=== PATIENT | male | born 1960 | race African-American/Black ===

== ENCOUNTER 2019-11-01 05:24 | Inpatient (IN) | payer SELFPAY ==
[~2019-11-01] VITALS: Ht 175.3 cm; Wt 88.9 kg
[2019-11-01] VITALS (23 sets, daily range): BP systolic 80–118; BP diastolic 48–74
[~2019-11-01 05:24] MED LIST: CLON0.3T; HYDR25TA4; NIFE60TA53
[2019-11-01] MEDS ORDERED: SODIUM CHLORIDE 0.9% 1,000 ML IV ONE (05:45)
[2019-11-01 06:32] LABS: Hematocrit 26.8 % (41.0-53.0); Mean Corpuscular Hemoglobin 34.4 pg (28.0-32.0); Mean Corpuscular Hgb Conc. 33.7 g/dL (32.0-36.0); Mean Corpuscular Volume 102.2 fL (80.0-100.0); Platelet Count (auto) 230 10^3/uL (140-450); Red Blood Cells 2.62 10^6/uL (4.5-5.90); White Blood Cell 15.7 10^3/uL (4.4-10.8)
[2019-11-01 06:34] LABS: Basophils % (manual) 0 (0.0-2.0); Blast Cells 0; Eosinophils % (manual) 0 (0-7); Promyelocytes % 0; Reactive Lymphocytes 0
[2019-11-01 06:35] LABS: Chloride 102 mmol/L (98-107); Potassium 3.5 mmol/L (3.5-5.1); Sodium 137 mmol/L (136-145)
[2019-11-01 06:36] LABS: INR 1.39 (0.9-1.15); Partial Thromboplastin Time 25.2 sec (23.64-32.05)
[2019-11-01 06:48] LABS: Alanine Aminotransferase 35 U/L (16-61); Albumin 2.9 g/dL (3.4-5.0); Alkaline Phosphatase 81 U/L (45-117); Anion Gap 14 (5-15); Aspartate Aminotransferase 32 U/L (15-37); BUN/Creatinine Ratio 36.7; Blood Urea Nitrogen 58 mg/dL (7-18); Calcium 7.7 mg/dL (8.5-10.1); Carbon Dioxide 21 mmol/L (21-32); GFR African American 58 mL/min; GFR Non-African American 48 mL/min; Glucose 140 mg/dL (74-106); Total Protein 6.6 g/dL (6.4-8.2)
[2019-11-01 06:52] LABS: Band Neutrophils % (manual) 1; Lymphocytes % (manual) 24 (10.0-50.0); Metamyelocytes % 1; Monocytes % (manual) 7 (0-12); Myelocytes % 2
[2019-11-01] MEDS ORDERED: ALBUMIN 5% 250 ML IV ONE (07:45)
[2019-11-01] MEDS ORDERED: MORPHINE SULF INJ 2 MG/ML SYRINGE 1ML IV PRN (07:45)
[2019-11-01] MEDS ORDERED: ONDANSETRON HCL 4 MG/2 ML VIAL IV PRN (07:45)
[2019-11-01] MEDS ORDERED: NITROGLYCERIN 0.4 MG SL TAB SL PRN (07:45)
[2019-11-01] MEDS: SODIUM CHLORIDE 0.9% 1,000 ML IV SCH (08:33)
[2019-11-01 08:42] LABS: Hematocrit 23.7 % (41.0-53.0); Hemoglobin 7.8 g/dL (13.5-17.5)
--- NOTE | 2019-11-01 09:12 | NUR ---
RECEIVED REPORT FROM CANDIDA DOLL
--- NOTE | 2019-11-01 09:25 | NUR ---
RECEIVED PT ON UNIT PT IS AWAKE AND ALERT X4. PERSON, PLACE, TIME, SITUATION. PT IS ON ROOM AIR AND BREATHING IS EVEN AND UNLABORED. PT HAS AN IV TO LEFT HAND 22 GAUGE AND A LEFT AC 20 GAUGE. PT RECEIVED 1L BOLUS PER TREE AND SHRUB WORKER. PT USES URINAL AND BEDSIDE TOILET FOR BOWEL MOVEMENTS. VS: HR 137, BP 104/61, RR 23, O2 SAT 100% ON ROOM AIR. TEMP 98 F, PAIN 8/10 IN ABDOMEN. PT IS COOPERATIVE BUT FEELS DIZZY AND LIGHTHEADED. WILL CONTINUE TO MONITOR.
[2019-11-01] MEDS: PANTOPRAZOLE 80 MG in SODIUM CHL 0.9% 60 ML IV SCH ×2 (09:52→21:51)
[2019-11-01] MEDS: OCTREOTIDE ACETATE 500 MCG in SODIUM CHL 0.9% 99 ML IV SCH ×2 (09:52→21:52)
[2019-11-01] MEDS: cefTRIAXone 1GM/50ML D5W 50 ML IV SCH (10:13)
--- NOTE | 2019-11-01 10:30 | NUR ---
DR. CAMARENA AT BEDSIDE ORDERS RECEIVED
[2019-11-01] MEDS ORDERED: MAGNESIUM SULFATE 1GM/100ML 100 ML IV ONE (11:00)
[2019-11-01] MEDS ORDERED: ALUM & MAG HYDROX-SIMETH LIQ(MAALOX) 30 ML PO PRN (11:00)
[2019-11-01] MEDS ORDERED: PHYTONADIONE (VIT K)10 MG/ML 1ML VIAL SUBCUT ONE (11:00)
--- NOTE | 2019-11-01 11:00 | NUR ---
DR. HEMPHILL AT BEDSIDE SPOKE WITH PT REGARDING EGD AND POSSIBLE COLONOSCOPY. PT STATES UNDERSTANDING OF INFORMATION GIVEN. ORDERS RECEIVED
--- NOTE | 2019-11-01 11:00 | NUR ---
PT HAD APPROXIMATELY 300CC LIQUID BLACK STOOL IN TOILET
[2019-11-01] MEDS ORDERED: diphenhdrAMINE HCL 50 MG/1 ML VL IV PRN (11:30)
[2019-11-01] MEDS ORDERED: MIDAZOLAM HCL 5 MG/ML-1ML VIAL ONE (11:39)
[2019-11-01] MEDS ORDERED: NOREPINEPHRINE 8 MG/250ML KIT 250 ML IV ONE (11:40)
[2019-11-01] MEDS ORDERED: ETOMIDATE (2MG/ML) 20ML VIAL IV ONE (11:40)
--- NOTE | 2019-11-01 12:00 | NUR ---
LOW BP CONTACTED DR. CAMARENA REGARDING PT'S LOW BP. ORDERS RECEIVED
--- NOTE | 2019-11-01 12:00 | NUR ---
CONSENTS SIGNED FOR BLOOD TRANSFUSION, EGD, COLONOSCOPY, AND SEDATION
[2019-11-01] MEDS: MORPHINE SULF INJ 2 MG/ML SYRINGE 1ML IV PRN ×2 (12:39→21:41)
--- NOTE | 2019-11-01 13:03 | NUR ---
BLOOD TRANSFUSION STARTED. SEE VITAL SIGNS IN TRANSFUSION TAB. WILL CONTINUE TO MONITOR
[2019-11-01] MEDS: NOREPINEPHRINE 8 MG/250ML KIT 250 ML IV SCH (13:08)
[2019-11-01] MEDS ORDERED: EPINEPHrine HCL 1 MG/10 ML SYRG ONE (13:39)
[2019-11-01] MEDS ORDERED: diphenhdrAMINE HCL 50 MG/1 ML VL ONE (13:59)
[2019-11-01] MEDS ORDERED: MIDAZOLAM HCL 5 MG/ML-1ML VIAL IV ONE (14:00)
[2019-11-01] MEDS ORDERED: SODIUM CHLORIDE LOCK 10 ML ONE (14:01)
--- NOTE | 2019-11-01 14:15 | NUR ---
DR. HEMPHILL AT BEDSIDE TO PERFORM EGD
[2019-11-01] MEDS: MIDAZOLAM HCL 5 MG/ML-1ML VIAL ONE ×6 (14:34→15:32)
[2019-11-01] MEDS: fentaNYL CITRATE 100 MCG/2 ML VL ONE ×5 (14:34→15:32)
--- NOTE | 2019-11-01 15:30 | NUR ---
UNABLE TO VS BLOOD PRESSURES FROM [id number] DUE TO EGD PROCEDURE
--- NOTE | 2019-11-01 15:30 | NUR ---
DR. HEMPHILL STATES THAT HE WAS NOT ABLE TO STOP BLEEDING WITH EGD INTERVENTIONS. STATES WILL CONSULT WITH INTERVENTIONAL RADIOLOGY
--- NOTE | 2019-11-01 16:00 | NUR ---
1 UNIT PRBC TRANSFUSED. NO S/S OF TRANSFUSION REACTION. PT TOLERATED WELL.
--- NOTE | 2019-11-01 16:12 | NUR ---
PICC NURSE AT BEDSIDE TO PLACE MIDLINE
--- NOTE | 2019-11-01 16:15 | NUR ---
UNABLE TO OBTAIN VS BLOOD PRESSURE FROM [id number] DUE TO PICC NURSE TRYING TO OBTAIN MIDLINE ACCESS
[2019-11-01] MEDS ORDERED: LIDOCAINE 2%HCL (LOCAL ANESTH.) INJ 20ML MDV ONE (16:19)
[2019-11-01] MEDS ORDERED: IOHEXOL 350 MG/ML 100ML IJ ONE ×3 (16:19→18:09)
--- NOTE | 2019-11-01 16:25 | NUR ---
Midline Placement: Patient educated on need for midline placement. All risks and benefits explained and all questions and concerns addresses prior to procedure. 18g/10cm midline inserted via right basilic vein using Ultrasound. Sterile technique utilized. Blood return obtained from lumen and flushed easily with NS using proper technique. Midline secured with saline lock; biodisc and occlusive dressing applied. Primary RN notified. Midline lot #[id number]
--- NOTE | 2019-11-01 16:36 | NUR ---
PT TAKEN TO LINE PRODUCTION COOK
[2019-11-01] MEDS ORDERED: fentaNYL CITRATE 100 MCG/2 ML VL ONE (16:41)
[2019-11-01] MEDS ORDERED: MIDAZOLAM HCL 1MG/1ML-2 ML VIAL ONE (16:42)
[2019-11-01] MEDS ORDERED: GELATIN 1 SPONGE SIZE 50 TOP ONE (17:23)
--- NOTE | 2019-11-01 18:00 | NUR ---
NOT ABLE TO DO 1800 ASSESSMENTS DUE TO PT OFF UNIT IN INTERVENTIONAL RADIOLOGY
[2019-11-01] MEDS ORDERED: GELATIN 1 SPONGE SIZE 100 TOP ONE (18:23)
--- NOTE | 2019-11-01 19:06 | NUR ---
PT RETURNED BACK FROM TRIAL COURT JUDGE REPORT RECEIVED FROM PAUL DOLL. NO SEDATION WAS USED. ANGIOSEAL TO RIGHT GROIN. SITE CLEAN DRY INTACT. WILL KEEP PATIENT FLAT FOR 2 HOURS. TIME WILL BE 2044 PER PAUL DOLL. WILL CONTINUE TO MONITOR.
--- NOTE | 2019-11-01 19:06 | NUR ---
UNABLE TO OBTAIN VS FROM [id number] DUE TO PT BEING OFF UNIT IN THE INSURANCE REPRESENTATIVE
[2019-11-01] MEDS: MAGNESIUM SULFATE 1GM/100ML 100 ML IV SCH ×3 (19:23→22:18)
--- NOTE | 2019-11-01 20:00 | NUR ---
OPEN Assumed care, full assessment done; see interventions. Right groin angio site asymptomatic, patient aware to keep leg straight and lay flat until approx. 2100 per MD order. HR afib in the low 100s, SBP stable. Protonix, Sandostatin, and mag rider infusing per IV spreadsheet.
--- NOTE | 2019-11-01 20:05 | NUR ---
PRBC/ELIMINATION PRBC verified and hung. Patient had soft-liquid BM via bedpan, arsh care done.
--- NOTE | 2019-11-01 20:05 | NUR ---
2ND UNIT BLOOD TRANSFUSION STARTED. SEE TRANSFUSION TAB FOR VITAL SIGNS. WILL CONTINUE TO MONITOR
--- NOTE | 2019-11-01 20:10 | NUR ---
CLOSING NOTE SHIFT REPORT GIVEN AND CARE ENDORSED TO LE DOLL
[2019-11-01] MEDS ORDERED: METO-158 PO (21:05)
[2019-11-01] MEDS ORDERED: LOSA-69 PO (21:05)
[2019-11-01] MEDS ORDERED: ASPI-231 PO (21:05)
[2019-11-01] MEDS ORDERED: AMLO5TAB15 PO (21:05)
[2019-11-01] MEDS ORDERED: ASPI-498 OR (21:05)
--- NOTE | 2019-11-01 22:38 | NUR ---
PRBC Completed transfusing, patient tolerated well with no adverse reaction noted. Vital signs stable. Will re-time H&H for 2330.
[2019-11-01 23:55] LABS: Hematocrit 25.9 % (41.0-53.0); Hemoglobin 8.4 g/dL (13.5-17.5)
[2019-11-02] VITALS (71 sets, daily range): BP systolic 91–167; BP diastolic 48–83
[2019-11-02] MEDS: chlordiazePOXIDE HCL 25 MG CAP PO PRN ×3 (00:29→19:38)
--- NOTE | 2019-11-02 00:29 | NUR ---
ANXIETY/RESTLESSNESS Patient very anxious, restless in bed; pain medication not due at this time. Administered PRN librium, see eMAR.
[2019-11-02] MEDS: SODIUM CHLORIDE 0.9% 1,000 ML IV SCH ×3 (00:30→21:00)
[2019-11-02] MEDS: MORPHINE SULF INJ 2 MG/ML SYRINGE 1ML IV PRN ×4 (01:42→19:42)
--- NOTE | 2019-11-02 03:36 | NUR ---
HR/HOSPITALIST Patient's HR sustaining 130-140s, SBP 110s. Patient resting at this time. Hospitalist paged.
[2019-11-02 03:45] LABS: Basophils # (auto) 0 uL; Basophils % (auto) 0.1 % (0.0-2.0); Eosinophils # (auto) 0 uL; Hemoglobin 7.4 g/dL (13.5-17.5); Lymphocytes # (auto) 2.6 uL; Lymphocytes % (auto) 15.2 % (10.0-50.0); Mean Corpuscular Hemoglobin 32.4 pg (28.0-32.0); Mean Corpuscular Hgb Conc. 32.2 g/dL (32.0-36.0); Mean Corpuscular Volume 100.6 fL (80.0-100.0); Monocytes # (auto) 1.4 uL; Monocytes % (auto) 8.2 % (0.0-12.0); Neutrophils # (auto) 12.8 uL; Neutrophils % (auto) 76.5 % (37.0-80.0); Platelet Count (auto) 146 10^3/uL (140-450); Red Blood Cells 2.28 10^6/uL (4.5-5.90); Red Cell Distribution Width 16.7 % (11.8-14.3); White Blood Cell 16.8 10^3/uL (4.4-10.8)
[2019-11-02 04:00] LABS: INR 1.3 (0.9-1.15)
[2019-11-02 04:01] LABS: Albumin 2.5 g/dL (3.4-5.0); Calcium 7.2 mg/dL (8.5-10.1); Magnesium 2.5 mg/dL (1.6-2.6); Potassium 5.1 mmol/L (3.5-5.1)
[2019-11-02 04:07] LABS: Bilirubin, Total 0.5 mg/dL (0.2-1.0); Total Protein 5.4 g/dL (6.4-8.2)
[2019-11-02] MEDS ORDERED: DIGOXIN (250MCG/ML) 2 ML AMPULE IV ONE ×2 (04:15→06:15)
--- NOTE | 2019-11-02 04:15 | NUR ---
ORDERS Spoke with Josue Orellana NP; new orders received.
--- NOTE | 2019-11-02 04:27 | NUR ---
DIGOXIN 0.125 mg Digoxin IVP x one administered per orders over 5 minutes. Patient tolerated well.
--- NOTE | 2019-11-02 05:33 | NUR ---
HOSPITALIST No significant drop in HR noted after Digoxin administration; hospitalist paged.
--- NOTE | 2019-11-02 06:13 | NUR ---
HOSPITALIST Spoke with Josue Orellana NP; orders received to repeat 0.125 mg dose of Digoxin IVP x one.
--- NOTE | 2019-11-02 06:38 | NUR ---
PRBC Ordered 1 unit PRBC per standing order by Dr. Lowry. Addendum: 11/02/19 at 0646 by Liberty Ponce RN For Hgb 7.4
--- NOTE | 2019-11-02 07:28 | NUR ---
SHIFT OPENING NOTE PATIENT AOX4, MOVING ALL EXTREMITIES, REPORTS ABDOMINAL PAIN, ABDOMEN ROUND, SOFT, AND TENDER TO TOUCH, PATIENT ON ROOM AIR, 02 SATURATION 98%, LUNGS CLEAR THROUGHOUT. URINAL AT BEDSIDE WITH NO BLADDER DISTENSION, SKIN INTEGRITY SEE INTERVENTION. PLAN OF CARE DISCUSSED WITH PATIENT WITH ALL QUESTIONS AND CONCERNS ADDRESSED AT THIS TIME
--- NOTE | 2019-11-02 07:59 | NUR ---
BLOOD TRANSFUSION STARTED NO ADVERSE REACTION NOTED
[2019-11-02] MEDS: OCTREOTIDE ACETATE 500 MCG in SODIUM CHL 0.9% 99 ML IV SCH (08:12)
--- NOTE | 2019-11-02 08:45 | NUR ---
FAMILY AND NIECE AT BEDSIDE. UPDATED ON PATIENT STATUS. ALL QUESTIONS AND CONCERNS ADDRESSED AT THIS TIME
[2019-11-02] MEDS: cefTRIAXone 1GM/50ML D5W 50 ML IV SCH (09:25)
[2019-11-02] MEDS: PANTOPRAZOLE 80 MG in SODIUM CHL 0.9% 60 ML IV SCH (09:35)
[2019-11-02] MEDS: PANTOPRAZOLE 40 MG/10 ML VIAL INJ IV SCH ×2 (10:47→22:02)
--- NOTE | 2019-11-02 11:02 | NUR ---
BLOOD TRANSFUSION COMPLETE NO REACTION NOTED. PATIENT TOLERATED WELL
--- NOTE | 2019-11-02 11:11 | NUR ---
HR 130'S DR. CAMARENA NOTIFIED. ORDERS RECEIVED
[2019-11-02] MEDS ORDERED: AMIODARONE HCL 150 MG in D5W 5% 100 ML IV ONE (11:15)
[2019-11-02] MEDS ORDERED: AMIODARONE HCL 900 MG in DEXTROSE 500 ML IV SCH (11:16)
[2019-11-02] MEDS: NOREPINEPHRINE 8 MG/250ML KIT 250 ML IV SCH (12:44)
--- NOTE | 2019-11-02 13:17 | NUR ---
ECHO AT BEDSIDE
--- NOTE | 2019-11-02 13:20 | NUR ---
HGB 6.6 DR[address] CAMARENA NOTIFIED. ORDERED 2 UNIT PRBC TO BE TRANSFUSED TOLERATED. NO BLOODY STOOLS, EMESIS, OR SIGNS OF BLOOD LOSS AT THIS TIME. ECHO AT BEDSIDE. PATIENT WITH SOME RELIEF AFTER PAIN MEDICATION
--- NOTE | 2019-11-02 13:25 | NUR ---
BLOOD TRANSFUSION STARTED
[2019-11-02 13:44] LABS: Hematocrit 19.7 % (41.0-53.0)
[2019-11-02 13:45] LABS: Hemoglobin 6.6 g/dL (13.5-17.5)
--- NOTE | 2019-11-02 14:35 | NUR ---
Received Art Coordinator Consult for pt, Mr. Pelaez. The consult is for resources for Etoh Abuse. Pt also does not appear to have insurance. At this moment pt is not with it enough to discuss Etoh information. There is no family in the room at the present time. According to Fede, [facility] states the will bring all his insurance information in tomorrow. Will continue to follow up with Fede.
--- NOTE | 2019-11-02 15:56 | NUR ---
BLOOD TRANSFUSION COMPLETE NO ADVERSE REACTION NOTED
[2019-11-02] MEDS: AMIODARONE HCL 900 MG in DEXTROSE 500 ML IV SCH (17:42)
--- NOTE | 2019-11-02 18:24 | NUR ---
FAMILY BROTHER IN TO VISIT PATIENT
--- NOTE | 2019-11-02 18:50 | NUR ---
BLOOD TRANSFUSION COMPLETE NO REACTION NOTED
--- NOTE | 2019-11-02 19:44 | NUR ---
PATIENT IS SHAKY. LIBRIUM GIVEN. ABDOMINAL PAIN LEVEL 9-10. MORPHINE GIVEN. HERE.
--- NOTE | 2019-11-02 20:00 | NUR ---
ADMITTED WITH GI BLEED. DR HEMPHILL SIGNING OFF TO DR Chhaya FIGUEROA. DR NEGRON PERFORMED A RIGHT COMMON FEMORAL ARTERIOGRAM TODAY GEL FOAMING MULTIPLE BRANCHES OF THE LEFT GASTRIC ARTERIAL BLEED. NEW CARDIAC CONSULT TODAY. ECHOCARDIOGRAM WAITING TO BE READ. SOCIAL SERVICE CONSULT IN FOR RESOURCES FOR ETOH ABUSE. SWITCHED OFF SANDOSTATIN AN PROTONIX DRIP TO PROTONIX IV PUSH TODAY. RECEIVED SEVERAL UNITS OF BLOOD TODAY. CLEAR LIQUID DIET, NO NAUSEA. PAIN: MID ABDOMEN. ALERT.ORIENTED.MOVES SELF. FULL RANGE OF MOTION. RHYTHM: ATRIAL FIB RATE 100- 112. NO FEVER.
--- NOTE | 2019-11-02 20:30 | NUR ---
H&H DONE. RESULT HG 8.5.
--- NOTE | 2019-11-02 20:45 | NUR ---
RESPONDING WELL TO THE LIBRIUM. FAMILY HERE. MODERATE RESPONSE TO THE MORPHINE. GAS PAINS. LIKES TO BE ON THE BEDPAN JUST IN CASE. ATRIAL FIB RATE 111. ON AMIODARONE DRIP STEADY RATE. HAD DIGOXIN EARLIER THIS AM.
[2019-11-02 21:00] LABS: Hematocrit 25.9 % (41.0-53.0); Hemoglobin 8.5 g/dL (13.5-17.5)
--- NOTE | 2019-11-02 22:00 | NUR ---
VOIDED 200CC OF CLEAR YELLOW LIQUID. NO BM YET. ATRIAL FIB RATE 90S TO 110. HAS BEEN FALLING ASLEEP OFF AND ON. IVS SHOW NO REDNESS OR SWELLING. ROOM AIR.
[2019-11-03] VITALS (53 sets, daily range): BP systolic 93–151; BP diastolic 66–110
--- NOTE | 2019-11-03 | NUR ---
SLEEPING. VITAL SIGNS STABLE . IVS SHOW NO REDNESS OR SWELLING. ABDOMEN SOFT AND ROUND. MINIMAL ABDOMINAL PAIN. NO FEVER. VOIDING PER URINAL.
[2019-11-03] MEDS: AMIODARONE HCL 900 MG in DEXTROSE 500 ML IV SCH (01:00)
--- NOTE | 2019-11-03 02:00 | NUR ---
INCONTINENT OF A SMALL AMOUNT OF DARK RED/BROWN DRNG. JOSELIN CARE DONE. NEW PAD UNDER PATIENT. ABDOMINAL PAIN MINIMAL. VSS.
[2019-11-03 02:49] LABS: Bilirubin, Total 0.6 mg/dL (0.2-1.0); Calcium 7.2 mg/dL (8.5-10.1); Potassium 4.5 mmol/L (3.5-5.1); Total Protein 4.6 g/dL (6.4-8.2)
[2019-11-03] MEDS: SODIUM CHLORIDE 0.9% 1,000 ML IV SCH (05:00)
[2019-11-03 05:23] LABS: Basophils # (auto) 0 uL; Basophils % (auto) 0.2 % (0.0-2.0); Eosinophils # (auto) 0 uL; Eosinophils % (auto) 0.3 % (0.0-7.0); Hematocrit 24.1 % (41.0-53.0); Hemoglobin 8.1 g/dL (13.5-17.5); Lymphocytes # (auto) 2.5 uL; Lymphocytes % (auto) 22.1 % (10.0-50.0); Mean Corpuscular Hemoglobin 30.9 pg (28.0-32.0); Mean Corpuscular Hgb Conc. 33.4 g/dL (32.0-36.0); Mean Corpuscular Volume 92.6 fL (80.0-100.0); Monocytes # (auto) 1.1 uL; Monocytes % (auto) 10.1 % (0.0-12.0); Neutrophils # (auto) 7.6 uL; Neutrophils % (auto) 67.3 % (37.0-80.0); Nucleated Red Blood Cells % 0.9 %; Platelet Count (auto) 88 10^3/uL (140-450); Red Blood Cells 2.61 10^6/uL (4.5-5.90); Red Cell Distribution Width 16.7 % (11.8-14.3); White Blood Cell 11.3 10^3/uL (4.4-10.8)
--- NOTE | 2019-11-03 05:50 | NUR ---
REQUESTED LIBRIUM. PLACED ON BEDPAN. PASSING A LARGE AMOUNT OF FLATUS. ATRIAL FIB RATE 85-102. SBP STABLE.
[2019-11-03] MEDS: chlordiazePOXIDE HCL 25 MG CAP PO PRN ×2 (05:52→19:43)
[2019-11-03 08:11] LABS: Hematocrit 22.5 % (41.0-53.0); Hemoglobin 7.7 g/dL (13.5-17.5)
[2019-11-03] MEDS: cefTRIAXone 1GM/50ML D5W 50 ML IV SCH (09:08)
[2019-11-03] MEDS: PANTOPRAZOLE 40 MG/10 ML VIAL INJ IV SCH ×2 (09:09→21:34)
--- NOTE | 2019-11-03 09:59 | NUR ---
1 UNIT PRBC STARTED, NO TEMP, VS WNL. WILL CONTINUE TO MONITOR.
[2019-11-03] MEDS ORDERED: AMIODARONE HCL 200 MG TAB PO ONE (10:00)
[2019-11-03] MEDS: METOPROLOL TARTRATE 25 MG TAB PO SCH ×2 (10:00→21:35)
--- NOTE | 2019-11-03 11:49 | NUR ---
1 UNIT PRBC INFUSED. PATIENT TOLERATED WELL.
[2019-11-03] MEDS: NOREPINEPHRINE 8 MG/250ML KIT 250 ML IV SCH (12:44)
--- NOTE | 2019-11-03 13:08 | NUR ---
NUTRITION ASSESSMENT NOTES Please refer to link notes of nutrition screen form filed under the intervention section of the plan of care for further details. Est. Needs: 1950 kcal to 2350 kcal (25-30 kcal/kgBW), 78 gms to 102 gms pro (1.0-1.3 gms/kgBW d/t severe hypoalbuminemia, GI bleeding). Will continue to monitor pertinent labs and reassess nutrient need prn Thank you. Addendum: 11/03/19 at [address] Amended: Links added.
[2019-11-03 14:39] LABS: Hemoglobin 9.8 g/dL (13.5-17.5)
[2019-11-03] MEDS: MORPHINE SULF INJ 2 MG/ML SYRINGE 1ML IV PRN (16:01)
--- NOTE | 2019-11-03 16:30 | NUR ---
SHIFT REPORT RECEIVED AND ASSUMED CARE OF PT FROM TODD DOLL
--- NOTE | 2019-11-03 17:10 | NUR ---
PT HAD SMALL BLACK REDDISH SOFT LIQUID BM
--- NOTE | 2019-11-03 17:34 | NUR ---
assessment Patient is a 59 year old male who is alert and answering some questions. Patient informed me prior to admission he lived home with his and functioned with her assistance. Patient informed me he has no DME. Patient informed me his PCP is Dr Silva. When I asked about his ETOH habits patient informed me that he is not talking about that with me and he was done answering questions. Patients post discharge needs to be determined once downgraded from ICU. I will also try and reach patients . I informed patient he has a right to speak to a social media marketing manager regarding all care. I informed patient he has a right to participate in any and all discharge planning. Patient does not have a POA and advanced directive. I have offered patient information on POA and advanced directives. I informed the patient the advantages and benefits of having an Advanced Directive. Patient verbalized understanding. Addendum: 11/03/19 at 1737 by Angelina CORTES Amended: Links added.
--- NOTE | 2019-11-03 18:10 | NUR ---
PT HAD SMALL BLACK REDDISH SOFT LIQUID BM
--- NOTE | 2019-11-03 19:09 | NUR ---
CLOSING NOTE SHIFT REPORT GIVE BACK AND CARE ENDORSED TO JANEY DOLL
--- NOTE | 2019-11-03 19:44 | NUR ---
UP TO TOILET. SHAKY. STABLE ON FEET. NO DIZZINESS. BURGUNDY STOOL IN TOILET. GLUTEAL CLEFT SORENESS FROM HIS MULTIPLE STOOLS. CLEANED RECTAL AREA WELL. Z GUARD ON SKIN. HR ZOOMED TO 190. PLACED BACK IN BED. REQUESTED LIBRIUM. SHAKINESS STOPPED WHILE IN BED. HR IS ATRIAL FIB RATE COMING DOWN NOW TO 118. LYING ON LEFT SIDE TO KEEP OFF SORE BOTTOM. BLOOD PRESSURE 138/87.
--- NOTE | 2019-11-03 20:00 | NUR ---
ADMITTED WITH GI BLEED. DR HEMPHILL DID AN ENDOSCOPY AND PLACED 6 CLIPS. PATIENT KEPT BLEEDING. DR NEGRON DID A RIGHT COMMON FEMORAL ARTERIOGRAM AND USED GEL FOAM EMBOLIZATION OF MULTIPLE BRANCHES OF THE LEFT GASTRIC ARTERY. PATIENT IS STABLIZING. RECEIVED ONE UNIT OF PACKED CELLS THIS AM. FOLLOWUP H&H WAS 9.8. H&H Q 6 HOURS. UNABLE TO DRAW FROM THE MIDLINE. LAB HAS BEEN UNABLE TO GET THE LAB DRAW TILL 2100. ALERT. ORIENTED. LAURA. SPEECH CLEAR. LUNGS CLEAR. ROOM AIR ABDOMEN SOFT. DENIES ABDOMINAL PAIN TODAY. PASSING LARGE AMOUNTS OF FLATUS. HAD ONE BURGUNDY STOOL SO FAR. COLLIER WELL. EATING CLEAR LIQUID DIET. HE'S HUNGRY. HAS A RIGHT UPPER ARM MIDLINE CATHETER AND ONE LEFT HAND 22G AND ONE LAC 20 G.
--- NOTE | 2019-11-03 20:41 | NUR ---
LETTING HIM GET UP TO THE COMMODE. EACH TIME IS EASIER. THIS TIME HE WAS NOT SHAKY. HEART RATE GOES UP BUT COMES BACK DOWN WHEN HE IS INACTIVE. PLACED BACK ON LOPRESSOR. DRINKING AND FOLLOWING THE CLEAR LIQUID DIET. ONLY A SMALL BURGUNDY STOOL. PASSING LARGE AMOUNT OF FLATUS STILL. ATRIAL FIB. SBP STABLE AND INCREASING LITTLE BY LITTLE. EACH TIME HE HAS A STOOL. WE CLEAN HIM WELL. DRY IT AND PLACE Z GUARD ON THE TENDER SKIN SURROUNDING THE ANUS.
[2019-11-03 21:21] LABS: Hematocrit 26.2 % (41.0-53.0); Hemoglobin 8.9 g/dL (13.5-17.5)
--- NOTE | 2019-11-03 22:05 | NUR ---
HAS BEEN UP TO THE TOILET 4 TIMES SO FAR. MINIMAL BURGUNDY STOOL. ATRIAL FIB RATE 109. GETTING STRONGER AND STRONGER. BP STABLE.
[2019-11-04] VITALS (24 sets, daily range): BP systolic 108–146; BP diastolic 60–100
--- NOTE | 2019-11-04 | NUR ---
UP TO THE COMMODE TO VOID. NO STOOL. STEADY ON FEET. NO SHAKING. HEART RATE WENT FROM 80 TO 112 WITH AMBULATION. RECTAL AREA CLEANSED AND Z GUARD APPLIED. DRINKING WATER. SBP STABLE.
[2019-11-04 01:01] LABS: Hematocrit 24.9 % (41.0-53.0); Hemoglobin 8.3 g/dL (13.5-17.5)
--- NOTE | 2019-11-04 02:00 | NUR ---
VSS. HR AND BLOOD PRESSURE RESPONDED TO LOPRESSOR. ATRIAL FIB/FLUTTER. VOIDED CLEAR YELLOW LIQUID IN URINAL. IVS SHOW NO REDNESS OR SWELLING.
[2019-11-04 04:15] LABS: Hematocrit 25.3 % (41.0-53.0); Hemoglobin 8.7 g/dL (13.5-17.5)
[2019-11-04 04:23] LABS: Albumin 2.4 g/dL (3.4-5.0); Calcium 7.7 mg/dL (8.5-10.1); Potassium 3.6 mmol/L (3.5-5.1)
[2019-11-04 04:25] LABS: BUN/Creatinine Ratio 14.6
[2019-11-04 04:27] LABS: Bilirubin, Total 0.6 mg/dL (0.2-1.0); Total Protein 5.2 g/dL (6.4-8.2)
--- NOTE | 2019-11-04 06:00 | NUR ---
VOIDED IN URINAL. NO STOOLS SINCE MIDNIGHT.
--- NOTE | 2019-11-04 07:45 | NUR ---
OPENING SHIFT NOTE PATIENT LAYING IN BED ON LEFT SIDE, ALERT AND ORIENTED X4, NO DISTRESS NOTED, RESPIRATIONS EVEN AND UNLABORED ON ROOM AIR, VSS AND DOCUMENTED. PATIENT REPORTS TO THIS THAT HE HAD A SMALL ACCIDENT AND GOWN/BEDDING IS WET, PATIENT USES URINAL. PATIENT AMBULATED TO BEDSIDE CHAIR - GOWN CHANGED. COMPLETE BEDDING CHANGED, PATIENT OFFERED ORAL CARE AND REFUSED AT THIS TIME. PATIENT AMBULATED BACK TO BED AWAITING BREAKFAST. CALL LIGHT AND ALL PERSONAL BELONGINGS WITHIN REACH INCLUDING WATER. FALL AND SAFETY PRECAUTIONS IN PLACE. WILL CONTINUE TO MONITOR.
[2019-11-04] MEDS: cefTRIAXone 1GM/50ML D5W 50 ML IV SCH (09:56)
[2019-11-04] MEDS: PANTOPRAZOLE 40 MG/10 ML VIAL INJ IV SCH ×2 (09:56→22:02)
[2019-11-04] MEDS: METOPROLOL TARTRATE 25 MG TAB PO SCH ×2 (09:57→22:03)
[2019-11-04] MEDS: chlordiazePOXIDE HCL 25 MG CAP PO PRN (09:57)
[2019-11-04] MEDS ORDERED: AMIODARONE HCL 200 MG TAB PO SCH (10:00)
--- NOTE | 2019-11-04 10:45 | NUR ---
FAMILY AT BEDSIDE PATIENT'S STAYED FOR FEW MINUTES AND LEFT PATIENT WAS SLEEPING. PATIENT WAS AWARE OF SPOUSE AT BEDSIDE.
[2019-11-04 12:29] LABS: Hematocrit 26.3 % (41.0-53.0); Hemoglobin 8.8 g/dL (13.5-17.5)
[2019-11-04] MEDS: NOREPINEPHRINE 8 MG/250ML KIT 250 ML IV SCH (12:44)
--- NOTE | 2019-11-04 14:08 | NUR ---
DR FIGUEROA AT BEDSIDE DR FIGUEROA UPDATED ON PATIENT'S STATUS AND LABS. DR FIGUEROA REPORTED THAT "DR HEMPHILL DID NOT PROVIDE REPORT FOR THIS PATIENT FOR FOLLOW-UP BUT AFTER EVALUATING MEDICAL RECORDS AND AWARE OF SMALL "BURGANDY" STOOL REPORTED BY NUMBERER AND WIRER AND NO BM FOR THIS NURSE OTHER THAN PASSING GAS, DR FIGUEROA STATED "PATIENT IS CLEARED FOR DISCHARGE FROM GI AND CAN GO HOME ON PROTONIX AND FULL LIQUID DIET FOR 3 DAYS, NO ASPIRIN, IBUPROFEN, ALEVE, ETC.". HOSPITALIST WILL BE NOTIFIED.
--- NOTE | 2019-11-04 14:30 | NUR ---
FAMILY AT BEDSIDE/DIET PAMPHLET PROVIDED PATIENT'S SPOUSE AT BEDSIDE - A FULL LIQUID DIET PAMPHLET HAS BEEN PROVIDED TO FOLLOW AT HOME WHEN DISCHARGED. PATIENT'S AND SPOUSE VERBALIZED UNDERSTANDING.
--- NOTE | 2019-11-04 17:30 | NUR ---
HOSPITALIST AT BEDSIDE DR WONG UPDATED ON PATIENT'S STATUS, DISCUSSED PLAN OF CARE WITH PATIENT, PATIENT VERBALIZED UNDERSTANDING. DOWNGRADE ORDERS TO TELE RECEIVED, CHARGE NURSE AWARE.
[2019-11-04 18:32] LABS: Hematocrit 27.7 % (41.0-53.0); Hemoglobin 9.3 g/dL (13.5-17.5)
--- NOTE | 2019-11-04 19:05 | NUR ---
END OF SHIFT NOTE PATIENT RESTING IN BED WATCHING TELEVISION, ALERT AND ORIENTED X4, NO DISTRESS NOTED, RESPIRATIONS EVEN AND UNLABORED. PATIENT DENIES PAIN AND NAUSEA DURING SHIFT, NO BM THROUGHOUT DAY SHIFT. CALL LIGHT, WATER AND ALL PERSONAL BELONGINGS WITHIN REACH. FALL AND SAFETY PRECAUTIONS IN PLACE. ENDORSED CONTINUED CARE TO DEVELOPMENT SYSTEM EFFICIENCY MANAGER RN.
--- NOTE | 2019-11-04 19:10 | NUR ---
OPENING SHIFT NOTE PATIENT LAYING IN BED WATCHING TELEVISION, ALERT AND ORIENTED X4, NO DISTRESS NOTED, RESPIRATIONS EVEN AND UNLABORED ON ROOM AIR, VSS AND DOCUMENTED. PATIENT USES URINAL AT BEDSIDE. IV TO LEFT HAND 22G IS LEAKING AND IS REMOVED AT THIS TIME. COMPLETE BEDDING CHANGED, PATIENT OFFERED ORAL CARE AND REFUSED AT THIS TIME. CALL LIGHT AND ALL PERSONAL BELONGINGS WITHIN REACH INCLUDING WATER. FALL AND SAFETY PRECAUTIONS IN PLACE. WILL CONTINUE TO MONITOR.
[2019-11-04] MEDS: MORPHINE SULF INJ 2 MG/ML SYRINGE 1ML IV PRN (21:01)
--- NOTE | 2019-11-04 22:43 | NUR ---
called and gave report to telecommunications support spoke with Mark
--- NOTE | 2019-11-04 23:00 | NUR ---
PATIENT TRANSFERRED TO TELE 278B
--- NOTE | 2019-11-04 23:03 | NUR ---
Telemetry admit from ICU RENITA TSAI admitted to Telemetry unit after SBAR received. Patient oriented to Mark Moore, primary RN, unit, room, bed, and unit policies regarding patient care and visiting hours. Patient now on continuous telemetry monitoring, tele box #49 and telemetry reading on arrival to unit is AFIB 70s. Patient placed on bedside oxygen, weighed by bedscale and encouraged to call if they need something. All questions and concerns addressed, patient verbalized understanding.
[2019-11-05 01:06] LABS: Hemoglobin 8.4 g/dL (13.5-17.5)
--- NOTE | 2019-11-05 03:49 | NUR ---
IV removal Left AC 20 G IV DC'd with clean sterile technique, catheter fully intact. Pressure dressing applied to site. Patient tolerated well.
[2019-11-05 05:00] VITALS: BP 128/95
[2019-11-05 06:48] LABS: INR 1.18 (0.9-1.15); Partial Thromboplastin Time 26.3 sec (23.64-32.05)
[2019-11-05 06:52] LABS: Potassium 3.7 mmol/L (3.5-5.1)
[2019-11-05 06:59] LABS: Basophils # (auto) 0 uL; Basophils % (auto) 0.3 % (0.0-2.0); Eosinophils # (auto) 0.1 uL; Eosinophils % (auto) 1.2 % (0.0-7.0); Hematocrit 25.4 % (41.0-53.0); Hemoglobin 8.7 g/dL (13.5-17.5); Lymphocytes # (auto) 1.6 uL; Lymphocytes % (auto) 18.5 % (10.0-50.0); Mean Corpuscular Hemoglobin 31.9 pg (28.0-32.0); Mean Corpuscular Hgb Conc. 34.4 g/dL (32.0-36.0); Mean Corpuscular Volume 92.8 fL (80.0-100.0); Monocytes # (auto) 0.9 uL; Monocytes % (auto) 10.1 % (0.0-12.0); Neutrophils # (auto) 5.9 uL; Neutrophils % (auto) 69.9 % (37.0-80.0); Nucleated Red Blood Cells % 0.1 %; Platelet Count (auto) 124 10^3/uL (140-450); Red Blood Cells 2.74 10^6/uL (4.5-5.90); Red Cell Distribution Width 16.7 % (11.8-14.3); White Blood Cell 8.5 10^3/uL (4.4-10.8)
[2019-11-05 07:10] LABS: Albumin 2.4 g/dL (3.4-5.0); BUN/Creatinine Ratio 10.1; Bilirubin, Total 0.5 mg/dL (0.2-1.0); Calcium 7.8 mg/dL (8.5-10.1); Magnesium 1.5 mg/dL (1.6-2.6); Phosphorus 2.6 mg/dL (2.5-4.90); Total Protein 5.4 g/dL (6.4-8.2)
--- NOTE | 2019-11-05 08:10 | NUR ---
PT SIGNED AMA PT STATED "I AM LEAVING I CAN'T AFFORD THIS I AM STILL PAYING MY BILLS FROM PREVIOUS HOSPITALIZATION, I FEEL FINE AND THERE IS NO REASON FOR ME TO STAY, I WILL ONLY SEE THE DOCTOR IF THE DOCTOR GETS HERE BEFORE MY WILL PICK ME UP, I DO NOT WANT TO BE HERE, HOSPITAL IS KEEPING ME TO MAKE MORE MONEY, MY DOCTOR IS DR. ASHLY MOTA, I WILL FOLLOW UP WITH MY DOCTOR". PT EDUCATED ON THE RISK OF GOING HOME AMA AND WITHOUT WAITING FOR THE DOCTOR, PT ENCOURAGED TO STAY AND WAIT FOR THE DOCTOR TO GET PRESCRIPTION AND FURTHER INSTRUCTION BUT PT HAS FIRM DECISION TO GO HOME AMA AND SIGNED. PT ENCOURAGED TO COME BACK TO ER IF SIGN AND SYMPTOMS DOES NOT IMPROVE OR GET WORST. PT VERBALIZED UNDERSTANDING. CHARGE NURSE FRANCESCO MADE AWARE.
[2019-11-05 09:00] VITALS: BP 124/91
[2019-11-05] MEDS: cefTRIAXone 1GM/50ML D5W 50 ML IV SCH (09:00)
--- NOTE | 2019-11-05 09:32 | NUR ---
AMA Note RENITA TSAI states they want to leave the hospital Against Medical Advice (AMA). Patient encouraged to stay for further treatment/stabilization. MARVIN JAMES notified of patient's wishes. Patient advised of the risks and benefits of leaving AMA. Patient verbalized understanding. Patient encouraged to return to the ER if symptoms do not improve or worsen.
--- NOTE | 2019-11-05 09:40 | NUR ---
PAGED DR. WONG PT LEFT AMA, WAITING FOR CALL BACK.
--- NOTE | 2019-11-05 10:07 | NUR ---
SPOKE WITH DR. WONG, MADE AWARE PT LEFT AMA.
== END 2019-11-05 09:32 | disposition left against medical advice (07) | DRG 270 ==
LOC: EDBD 05:24 → ER 05:24 → TELE 05:25 → ICU WEST 09:24 → TELE-WESTW 11-04 23:03
PROVIDERS: ADMIT Nurse Practitioner; ATTEND Internal Medicine
PROC: 30233N1 Transfusion of Nonautologous Red Blood Cells into Peripheral Vein, Percutaneous Approach (ICD-10-PCS; 2019-11-01)
PROC: 0W3P8ZZ Control Bleeding in Gastrointestinal Tract, Via Natural or Artificial Opening Endoscopic (ICD-10-PCS; 2019-11-01)
PROC: B4121ZZ Fluoroscopy of Hepatic Artery using Low Osmolar Contrast (ICD-10-PCS; 2019-11-01)
PROC: B41J1ZZ Fluoroscopy of Other Lower Arteries using Low Osmolar Contrast (ICD-10-PCS; 2019-11-01)
PROC: B4131ZZ Fluoroscopy of Splenic Arteries using Low Osmolar Contrast (ICD-10-PCS; 2019-11-01)
PROC: B41F1ZZ Fluoroscopy of Right Lower Extremity Arteries using Low Osmolar Contrast (ICD-10-PCS; 2019-11-01)
PROC: B41B1ZZ Fluoroscopy of Other Intra-Abdominal Arteries using Low Osmolar Contrast (ICD-10-PCS; 2019-11-01)
PROC: 04V23DZ Restriction of Gastric Artery with Intraluminal Device, Percutaneous Approach (ICD-10-PCS; principal; 2019-11-01 13:00)
DX: T80.818A Extravasation of other vesicant agent, initial encounter (principal); K25.4 Chronic or unspecified gastric ulcer with hemorrhage; D68.69 Other thrombophilia; E44.0 Moderate protein-calorie malnutrition; I13.0 Hypertensive heart and chronic kidney disease with heart failure and stage 1 through stage 4 chronic kidney disease, or unspecified chronic kidney disease; I48.92 Unspecified atrial flutter; K56.7 Ileus, unspecified; N17.9 Acute kidney failure, unspecified; K57.32 Diverticulitis of large intestine without perforation or abscess without bleeding; D50.0 Iron deficiency anemia secondary to blood loss (chronic); D72.829 Elevated white blood cell count, unspecified; D75.89 Other specified diseases of blood and blood-forming organs; E11.22 Type 2 diabetes mellitus with diabetic chronic kidney disease; Z68.28 Body mass index [BMI] 28.0-28.9, adult; E83.42 Hypomagnesemia; F17.210 Nicotine dependence, cigarettes, uncomplicated; I48.91 Unspecified atrial fibrillation; I50.9 Heart failure, unspecified; I70.0 Atherosclerosis of aorta; K40.20 Bilateral inguinal hernia, without obstruction or gangrene, not specified as recurrent; K70.10 Alcoholic hepatitis without ascites; K76.0 Fatty (change of) liver, not elsewhere classified; N18.3 Chronic kidney disease, stage 3 (moderate); N40.0 Benign prostatic hyperplasia without lower urinary tract symptoms; Z79.899 Other long term (current) drug therapy; Z80.0 Family history of malignant neoplasm of digestive organs; Z80.8 Family history of malignant neoplasm of other organs or systems; N32.3 Diverticulum of bladder; Z53.29 Procedure and treatment not carried out because of patient's decision for other reasons
CPT/HCPCS: 36415; 71045; 74176; 75625; 76705; 76942; 80053; 82150; 83690; 83735; 83880; 84100; 84154; 84443; 84484; 85007; 85014; 85018; 85025; 85027; 85610; 85730; 86850; 86900; 86901; 86920; 87040; 87081; 93005; 93306; 96361; 96365; 96366; C9113; G0378; J0696; J2250; J3430; J7060

== ENCOUNTER 2023-11-23 01:23 | Inpatient (IN) | payer OTHER ==
[~2023-11-23] VITALS: Ht 172.7 cm; Wt 72.0 kg
[~2023-11-23 01:23] MED LIST changes: +AMLO1TAB22 PO; +ASPI-498 OR; +ASPI1TAB20 PO; +LOSA50TA46 PO; +METO-158 PO
[2023-11-23 01:55] VITALS: PULSE 114; RESP 16; O2SAT 100
[2023-11-23 01:58] LABS: Basophils # (auto) 0.1 10 ^3/uL (0-0.2); Basophils % (auto) 0.7 % (0.0-2.0); Eosinophils # (auto) 0 10 ^3/uL (0-0.8); Eosinophils % (auto) 0.2 % (0.0-7.0); Hematocrit 34.6 % (41.0-53.0); Hemoglobin 11.5 g/dL (13.5-17.5); Lymphocytes % (auto) 40.9 % (10.0-50.0); Mean Corpuscular Hemoglobin 32.8 pg (28.0-32.0); Mean Corpuscular Hgb Conc. 33.1 g/dL (32.0-36.0); Mean Corpuscular Volume 99.1 fL (80.0-100.0); Monocytes # (auto) 0.8 10 ^3/uL (0-1.3); Monocytes % (auto) 8.6 % (0.0-12.0); Neutrophils # (auto) 4.8 10 ^3/uL (1.6-8.6); Neutrophils % (auto) 49.6 % (37.0-80.0); Nucleated Red Blood Cells % 0.1 %; Red Blood Cells 3.49 10^6/uL (4.5-5.90); Red Cell Distribution Width 14.2 % (11.8-14.3); White Blood Cell 9.8 10^3/uL (4.4-10.8)
[2023-11-23 02:12] LABS: INR 1.21 (0.9-1.15); Prothrombin Time 12.5 sec (9.3-11.8)
[2023-11-23 02:14] LABS: Alanine Aminotransferase 65 U/L (7-40); Alkaline Phosphatase 68 U/L (46-116); Anion Gap 14 (5-15); Aspartate Aminotransferase 81 U/L (13-40); BUN/Creatinine Ratio 28.7 (10.0-20.0); Bilirubin, Total 1.2 mg/dL (0.2-1.0); Blood Urea Nitrogen 39 mg/dL (9-23); Calcium 8.2 mg/dL (8.7-10.4); Carbon Dioxide 22 mmol/L (20-30); Chloride 99 mmol/L (98-107); Glucose 118 mg/dL (74-106); Lipase 26 U/L (12-53); Sodium 135 mmol/L (136-145); Total Protein 7.7 g/dL (5.7-8.2)
[2023-11-23 02:36] LABS: Potassium 2.2 mmol/L (3.5-5.1)
[2023-11-23] MEDS: POTASSIUM CHL 20MEQ/100ML 100 ML IV SCH ×4 (02:51→09:04)
[2023-11-23] MEDS ORDERED: ONDANSETRON HCL 4 MG/2 ML VIAL IV PRN (03:30)
[2023-11-23] MEDS ORDERED: HYDROcodone-ACET 5/325MG TAB PO PRN (03:30)
[2023-11-23] MEDS ORDERED: MAALOX PLUS or MAALOX 30 ML PO PRN (03:30)
[2023-11-23] MEDS ORDERED: MORPHINE SULFATE INJ 2 MG/ml SYRG IV PRN (03:30)
[2023-11-23] MEDS ORDERED: DOCUSATE SOD 100 MG CAP PO PRN (03:30)
[2023-11-23] MEDS ORDERED: ACETAMINOPHEN 325 MG TAB PO PRN (03:30)
[2023-11-23] MEDS: SODIUM CHLORIDE 0.9% 1,000 ML IV SCH ×2 (04:01→20:10)
[2023-11-23 05:51] LABS: Basophils # (auto) 0 10 ^3/uL (0-0.2); Basophils % (auto) 0.4 % (0.0-2.0); Eosinophils # (auto) 0 10 ^3/uL (0-0.8); Hematocrit 30.6 % (41.0-53.0); Hemoglobin 10.2 g/dL (13.5-17.5); Lymphocytes # (auto) 1.6 10 ^3/uL (0.4-5.4); Lymphocytes % (auto) 19.6 % (10.0-50.0); Mean Corpuscular Hemoglobin 33.2 pg (28.0-32.0); Mean Corpuscular Hgb Conc. 33.5 g/dL (32.0-36.0); Mean Corpuscular Volume 99.2 fL (80.0-100.0); Monocytes # (auto) 0.6 10 ^3/uL (0-1.3); Monocytes % (auto) 7.7 % (0.0-12.0); Neutrophils # (auto) 5.9 10 ^3/uL (1.6-8.6); Neutrophils % (auto) 72.3 % (37.0-80.0); Nucleated Red Blood Cells % 0.1 %; Red Blood Cells 3.08 10^6/uL (4.5-5.90); Red Cell Distribution Width 14.2 % (11.8-14.3); White Blood Cell 8.2 10^3/uL (4.4-10.8)
[2023-11-23 06:10] LABS: Chloride 99 mmol/L (98-107); Potassium 2.8 mmol/L (3.5-5.1); Sodium 134 mmol/L (136-145)
[2023-11-23 06:11] LABS: Anion Gap 11 (5-15); Calcium 8.1 mg/dL (8.5-10.1); Carbon Dioxide 24 mmol/L (20-30)
[2023-11-23 06:17] LABS: Glucose 113 mg/dL (74-106)
[2023-11-23 06:39] LABS: Blood Urea Nitrogen 38 mg/dL (9-23)
[2023-11-23 07:24] LABS: BUN/Creatinine Ratio 27.3 (10.0-20.0)
[2023-11-23 09:31] VITALS: PULSE 103; RESP 16; O2SAT 100
[2023-11-23] MEDS: PANTOPRAZOLE 40 MG/10 ML VIAL INJ IV SCH ×2 (11:48→22:09)
[2023-11-23] MEDS ORDERED: SODIUM CHLORIDE LOCK 10 ML ONE (15:27)
[2023-11-23] MEDS ORDERED: NALOXONE HCL 0.4 MG/ML VIAL ONE (15:27)
[2023-11-23] MEDS ORDERED: FLUMAZENIL 0.1 MG/ML INJ 10ML MDV IV ONE (15:27)
[2023-11-23] MEDS ORDERED: diphenhdrAMINE HCL 50 MG/1 ML VL ONE (15:28)
[2023-11-23] MEDS ORDERED: fentaNYL CITRATE 100 MCG/2 ML VL ONE (15:28)
[2023-11-23] MEDS ORDERED: LIDOCAINE VISCOUS 2% 15ML UD ONE (15:28)
[2023-11-23] MEDS ORDERED: MIDAZOLAM HCL 5 MG/ML-1ML VIAL ONE (15:28)
[2023-11-23] MEDS ORDERED: EPINEPHrine HCL 1 MG/10 ML SYRG ONE (15:29)
[2023-11-23 16:04] VITALS: O2SAT 100
[2023-11-23 19:58] VITALS: PULSE 105; RESP 14; O2SAT 98
[2023-11-23 22:58] VITALS: BP 114/85; PULSE 105; RESP 18; TEMP 98.1; O2SAT 97
[2023-11-24 04:36] VITALS: BP 109/86; PULSE 82; RESP 18; TEMP 98.1; O2SAT 99
[2023-11-24] MEDS: SODIUM CHLORIDE 0.9% 1,000 ML IV SCH (05:22)
[2023-11-24 09:00] VITALS: BP 106/71; PULSE 99; RESP 20; TEMP 98.2; O2SAT 99
[2023-11-24] MEDS: PANTOPRAZOLE 40 MG/10 ML VIAL INJ IV SCH (09:03)
[2023-11-24 12:01] LABS: Basophils # (auto) 0 10 ^3/uL (0-0.2); Eosinophils # (auto) 0 10 ^3/uL (0-0.8); Eosinophils % (auto) 0.2 % (0.0-7.0); Hematocrit 24.9 % (41.0-53.0); Hemoglobin 8.2 g/dL (13.5-17.5); Monocytes # (auto) 0.5 10 ^3/uL (0-1.3); White Blood Cell 5.5 10^3/uL (4.4-10.8)
[2023-11-24 12:03] LABS: Basophils % (auto) 0.4 % (0.0-2.0); Lymphocytes # (auto) 1.3 10 ^3/uL (0.4-5.4); Lymphocytes % (auto) 23.7 % (10.0-50.0); Mean Corpuscular Volume 99.8 fL (80.0-100.0); Monocytes % (auto) 8.3 % (0.0-12.0); Neutrophils # (auto) 3.7 10 ^3/uL (1.6-8.6); Neutrophils % (auto) 67.4 % (37.0-80.0); Red Cell Distribution Width 13.9 % (11.8-14.3)
[2023-11-24 13:00] VITALS: BP 134/90; PULSE 94; RESP 18; TEMP 98; O2SAT 100
[2023-11-24] MEDS ORDERED: PANT40TA2 PO (14:55)
[2023-11-24 17:00] VITALS: BP 108/78; PULSE 95; RESP 20; TEMP 97.8; O2SAT 98
[2023-11-24 17:35] VITALS: BP 108/78; PULSE 95; RESP 20; TEMP 97.8; O2SAT 98
== END 2023-11-24 19:43 | disposition home or self-care (01) | DRG 377 ==
LOC: ER 01:23 → OVERFLOW 03:28 → CENTRAL 03:40
PROVIDERS: ADMIT Hospitalist; ATTEND Internal Medicine
PROC: 0DB78ZX Excision of Stomach, Pylorus, Via Natural or Artificial Opening Endoscopic, Diagnostic (ICD-10-PCS; 2023-11-23)
PROC: 0W3P8ZZ Control Bleeding in Gastrointestinal Tract, Via Natural or Artificial Opening Endoscopic (ICD-10-PCS; principal; 2023-11-23 14:45)
DX: K25.4 Chronic or unspecified gastric ulcer with hemorrhage (principal); N17.0 Acute kidney failure with tubular necrosis; D62 Acute posthemorrhagic anemia; E87.6 Hypokalemia; R55 Syncope and collapse; I10 Essential (primary) hypertension; I48.91 Unspecified atrial fibrillation; F10.10 Alcohol abuse, uncomplicated; R74.01 Elevation of levels of liver transaminase levels; F17.210 Nicotine dependence, cigarettes, uncomplicated; Z79.82 Long term (current) use of aspirin; Z79.899 Other long term (current) drug therapy; Z80.0 Family history of malignant neoplasm of digestive organs; Z80.8 Family history of malignant neoplasm of other organs or systems
CPT/HCPCS: 36415; 43239; 43255; 80048; 80053; 83690; 84132; 85025; 85610; 86850; 86870; 86900; 86901; 93005; 99291; C9113; G0378; J2250; J3480

== ENCOUNTER 2024-01-12 09:45 | Emergency (ER) | payer OTHER ==
[~2024-01-12] VITALS: Ht 172.7 cm; Wt 75.1 kg
[~2024-01-12 09:45] MED LIST changes: -ASPI-498 OR; -ASPI1TAB20 PO; +PANT40TA2 PO
[2024-01-12 09:46] VITALS: BP 122/67; PULSE 79; RESP 18; O2SAT 99
== END 2024-01-12 15:43 | disposition left against medical advice (07) ==
LOC: ER 09:45
DX: M54.50 Low back pain, unspecified (principal); M25.532 Pain in left wrist; R22.32 Localized swelling, mass and lump, left upper limb; L53.9 Erythematous condition, unspecified; Z53.21 Procedure and treatment not carried out due to patient leaving prior to being seen by health care provider